=== PATIENT | male | born 1935 | race Caucasian/White ===

== ENCOUNTER 2017-03-23 20:38 | Emergency (ER) | payer MEDICARE, OTHER ==
[~2017-03-23] VITALS: Ht 170.2 cm; Wt 73.5 kg
[2017-03-23 20:55] VITALS: Ht 170.2 cm; Wt 73.5 kg
[2017-03-23] MEDS ORDERED: SOD CHLORIDE 0.9% 500 ML IV STA (21:44)
[2017-03-23] MEDS ORDERED: MECLIZINE 12.5 MG TAB PO ONE (22:00)
[2017-03-23 22:07] LABS: ADD SCAN DIFF NO
[2017-03-23 22:09] LABS: BASOPHILS % 0.3 % (0.0-2.0); EOSINOPHILS # 0.2 10^3/ul (0.0-0.5); EOSINOPHILS % 2.6 % (0.0-7.0); HEMATOCRIT 34.2 % (42.0-52.0); HEMOGLOBIN 11.6 g/dl (14.0-18.0); LYMPHOCYTES # 1.6 10^3/ul (0.8-2.9); LYMPHOCYTES % 25.7 % (15.0-51.0); MEAN CORPUSCULAR HEMOGLOBIN 30.3 pg (29.0-33.0); MEAN CORPUSCULAR HGB CONC 33.9 g/dl (32.0-37.0); MEAN CORPUSCULAR VOLUME 89.3 fl (82.0-101.0); MEAN PLATELET VOLUME 10.7 fl (7.4-10.4); MONOCYTE # 0.8 10^3/ul (0.3-0.9); MONOCYTES % 12.4 % (0.0-11.0); NEUTROPHIL # 3.6 10^3/ul (1.6-7.5); NEUTROPHILS % 58.8 % (39.0-77.0); PLATELET COUNT 129 10^3/UL (140-415); RED BLOOD COUNT 3.83 10^6/ul (4.70-6.10); RED CELL DISTRIBUTION WIDTH 12.7 % (11.5-14.5); WHITE BLOOD COUNT 6.1 10^3/ul (4.8-10.8)
[2017-03-23 22:25] LABS: INR 0.99; PROTIME 13.1 Sec (12.2-14.2)
[2017-03-23 22:26] LABS: PARTIAL THROMBOPLASTIN TIME 26.1 Sec (25.0-35.0)
--- NOTE | 2017-03-23 22:27 | RADRPT ---
PROCEDURE: CT Brain without contrast. CLINICAL INDICATION: dizzy TECHNIQUE: A CT of the brain was performed on a multidetector CT scanner utilizing axial imaging f rom the skull base through the vertex without IV contrast. Multiplanar reformatted images were made . Images were reviewed on a PACS workstation. The CTDIvol is 44 mGy and the DLP is 630 mGycm. COMPARISON: None FINDINGS: There is moderate age appropriate diffuse cerebral volume loss with sulcal and ventricular dilatatio n. No discrete extra-axial fluid collection or masses present. The ventricles are in the midline a nd of normal contour and configuration. There is preservation of normal pizarro-white discrimination. Small chronic lacunar infarct is seen in the right basal ganglia. No other intra-axial masses or r egions of abnormal attenuation are seen. There is no intracranial hemorrhage. There is normal aeration of the visualized paranasal sinuses. IMPRESSION: Age-appropriate atrophy. Small chronic lacunar infarct right basal ganglia. No intracranial hemorr huy, mass or bleed. .Tan Joe MD, Date Time Electronically viewed and signed by .Tan Joe MD, on 03/23/2017 22:26 .A/
[2017-03-23 22:29] LABS: ANION GAP 16 (8-16); BLOOD UREA NITROGEN 18 mg/dl (7-20); CALCIUM 9.5 mg/dl (8.4-10.2); CARBON DIOXIDE 24 mmol/L (21-31); CHLORIDE 104 mmol/L (97-110); GLUCOSE 133 mg/dl (70-220); POTASSIUM 4.2 mmol/L (3.5-5.1); SODIUM 140 mmol/L (135-144)
[2017-03-23] MEDS ORDERED: LORAZEPAM 2 MG INJ IV ONE (22:30)
[2017-03-23 22:51] LABS: TROPONIN-I < 0.012 ng/ml (0.00-0.12)
[2017-03-23] MEDS ORDERED: IOHEXOL 350MG/ML 50 ML BTL ONE (22:52)
[2017-03-23] MEDS ORDERED: IOHEXOL 100 ML ONE (22:52)
[2017-03-23] MEDS ORDERED: SOD CHLORIDE 0.9% 100 ML ONE (22:52)
--- NOTE | 2017-03-23 23:04 | RADRPT ---
PROCEDURE: XR Chest. CLINICAL INDICATION: Dizziness. Syncope TECHNIQUE: Portable AP semi erect view of the chest was obtained. COMPARISON: None. FINDINGS: The cardiomediastinal silhouette is within upper normal limits. The lungs are clear. Some calcifie d perihilar lymph nodes are noted. There is no evidence for pleural effusion, pneumothorax or pulmo nary vascular congestion. The osseous structures are intact with no evidence for acute abnormality. Calcification is present within the aorta RPTAT:HJJR IMPRESSION: 1. Chronic granulomatous disease without evidence for acute intrathoracic pathology. 2. Aortic atherosclerosis is present. Physician Dallas Date Time Electronically viewed and signed by Physician Dallas on 03/23/2017 23:04 JR/
[2017-03-23] MEDS ORDERED: SIMV40TA2 PO (23:31)
[2017-03-23] MEDS ORDERED: FER325 PO (23:31)
[2017-03-23] MEDS ORDERED: ENAL20TA PO (23:31)
[2017-03-23] MEDS ORDERED: MECL-77 PO (23:31)
[2017-03-23] MEDS ORDERED: ACET1TAB40 PO (23:31)
[2017-03-23] MEDS ORDERED: ASPI-664 PO (23:31)
[2017-03-23] MEDS ORDERED: LOSA1TAB19 PO (23:31)
[2017-03-23] MEDS ORDERED: ACAR50TA PO (23:31)
[2017-03-23] MEDS ORDERED: CLOP75TA27 PO (23:31)
[2017-03-23] MEDS ORDERED: CYAN500T46 PO (23:31)
[2017-03-23] MEDS ORDERED: ESCI10TA48 PO (23:31)
[2017-03-23] MEDS ORDERED: SITA100T8 PO (23:31)
[2017-03-23] MEDS ORDERED: TRAM-40 PO (23:31)
[2017-03-23] MEDS ORDERED: CLON-379 PO (23:31)
[2017-03-23] MEDS ORDERED: LORA1TAB PO (23:31)
[2017-03-23] MEDS ORDERED: ACET-141 PO (23:31)
[2017-03-23] MEDS ORDERED: CHOL100062 PO (23:31)
[2017-03-23] MEDS ORDERED: METO25TA7 PO (23:31)
--- NOTE | 2017-03-24 00:12 | RADRPT ---
PROCEDURE: CTA head and neck. CLINICAL INDICATION: Dizziness. TECHNIQUE: Direct spiral 0.63 mm axial sections were obtained through the cervical and intracrania l vasculature with the use of 100 cc of Isovue 370 nonionic intravenous contrast material. Coronal and sagittal as well as 3-D maximal intensity projection reformations were obtained. The images were reviewed on a PACS workstation. CTDIvol: 34.65, 17.70 mGy. DLP: 1713.24 mGy-cm. COMPARISON: Brain CT performed earlier on the same date. FINDINGS: CTA neck: The branching pattern of the aortic arch is normal. There is minimal calcified atheroscle rotic plaque at both carotid bulbs, without stenosis. Less than 50% narrowings of both proximal ICA is are noted due to soft atherosclerotic plaque. The bilateral vertebral arteries are widely patent. No dissection or aneurysm is identified. CTA head: There is mild calcified atherosclerotic plaque along the left petrous and bilateral cavern ous and supraclinoid ICAs, without stenosis. The bilateral ACAs, MCAs, and livery car driver are widely patent. The vertebrobasilar system is patent. 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 The visualized cerebe llar arteries are unremarkable. No vascular malformation is seen. IMPRESSION: 1. No significant stenosis or occlusion along the major cervical and intracranial arteries. 2. 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 3. No dissection or vascular malformation. Measurements of cervical internal carotid artery stenosis were performed according to NASCET criteri a, with reference to distal ICA diameter. RPTAT: HTAR .Christopher Dick MD, Date Time Electronically viewed and signed by .Christopher Dick MD, on 03/24/2017 00:11 .R/
--- NOTE | 2017-03-24 01:10 | ERD ---
ER Documentation Chief Complaint Date/Time DATE: 03/24/17 TIME: 01:09 Chief Complaint dizzy x 3 days HPI This is an 81-year-old male with complaints of dizziness for 3 days. Patient has history of vertigo in the past. Denies any fevers or chills. Denies any nausea vomiting. No focal neurological complaints. No focal weakness. No recent or remote head trauma. No other current complaints. ROS All systems reviewed and are negative except as per history of present illness. Medications Home Meds Reported Medications Clopidogrel Bisulfate (Clopidogrel) 75 Mg Tablet, 75 MG PO DAILY, #30 TAB 03/23/17 Acarbose* (Precose*) 50 Mg Tablet, 50 MG PO WITH BREAKFAST, TAB 03/23/17 Cholecalciferol* (Vitamin D3*) 1,000 Unit Tablet, 2000 UNIT PO DAILY, TAB 03/23/17 Cyanocobalamin* (Vitamin B12*) 500 Mcg Tab, 1000 MCG PO DAILY, TAB 03/23/17 Aspirin* (Aspirin* EC) 81 Mg Tablet.dr, 81 MG PO DAILY, TAB 03/23/17 Simvastatin* (Zocor*) 40 Mg Tablet, 40 MG PO QHS, #30 TAB 03/23/17 Acetaminophen with Codeine (Acetaminophen-Cod #3 Tablet) 1 Each Tablet, 1 TAB PO Q6H, #7 TAB 03/23/17 Tramadol Hcl* (Ultram*) 50 Mg Tablet, 50 MG PO Q6H Y for PAIN, TAB 03/23/17 Ferrous Sulfate* (Ferrous Sulfate*) 325 Mg Tabec, 325 MG PO DAILY, TAB 03/23/17 Sitagliptin* (Januvia*) 100 Mg Tablet, 100 MG PO DAILY, #30 TAB 03/23/17 Meclizine Hcl* (Meclizine Hcl*) 25 Mg Tablet, 25 MG PO Q8H Y for DIZZINESS, TAB 03/23/17 Acetaminophen* (Acetaminophen*) 500 MG Extra Strength Tablet, 500 MG PO Q4H Y for PAIN AND OR ELEVATED TEMP, TAB 03/23/17 Metoprolol Succinate* (Toprol XL*) 25 Mg Tab.sr.24h, 25 MG PO DAILY for ELEVATED BLOOD PRESSURE, #30 TAB 03/23/17 Escitalopram Oxalate* (Escitalopram Oxalate*) 10 Mg Tablet, 10 MG PO DAILY for ANXIETY, #30 TAB 03/23/17 Lorazepam* (Lorazepam*) 1 Mg Tablet, 1 MG PO Q6 Y for ANXIETY, #60 TAB 03/23/17 Losartan-Hydrochlorothiazide (Losartan-HCTZ) 50-12.5 Mg Tab, 1 TAB PO DAILY, TAB 03/23/17 Clonidine Hcl* (Clonidine Hcl*) 0.1 Mg Tab, 0.1 MG PO Q4H Y for ELEVATED BLOOD PRESSURE, TAB 03/23/17 Enalapril Maleate* (Enalapril Maleate*) 20 Mg Tablet, 20 MG PO DAILY Y for PRN, TAB 03/23/17 Allergies Allergies: Coded Allergies: No Known Allergy (Unverified , 03/23/17) PMhx/Soc Hx Alcohol Use: No Hx Substance Use: No Hx Tobacco Use: No Smoking Status: Never smoker Physical Exam Vitals Vital Signs Date Time Temp Pulse Resp B/P Pulse Ox O2 Delivery O2 Flow Rate FiO2 03/24/17 01:00 53 14 184/88 97 Room Air 03/24/17 00:00 65 22 159/129 96 Room Air 03/23/17 23:38 59 16 175/85 95 Room Air 03/23/17 20:55 98.3 67 18 179/91 97 Physical Exam Const: [] Head: Atraumatic Eyes: Normal Conjunctiva ENT: Normal External Ears, Nose and Mouth. Neck: Full range of motion..~ No meningismus. Resp: Clear to auscultation bilaterally Cardio: Regular rate and rhythm, no murmurs Abd: Soft, non tender, non distended. Normal bowel sounds Skin: No petechiae or rashes Back: No midline or flank tenderness Ext: No cyanosis, or edema Neur: Awake and alert Psych: Normal Mood and Affect Result Diagram: 03/23/17215803/23/172158 Results 24 hrs Laboratory Tests Test 03/23/17 21:59 03/23/17 22:31 White Blood Count 6.110^3/ul Red Blood Count 3.8310^6/ul Hemoglobin 11.6g/dl Hematocrit 34.2% Mean Corpuscular Volume 89.3fl Mean Corpuscular Hemoglobin 30.3pg Mean Corpuscular Hemoglobin Concent 33.9g/dl Red Cell Distribution Width 12.7% Platelet Count 79430^3/UL Mean Platelet Volume 10.7fl Neutrophils % 58.8% Lymphocytes % 25.7% Monocytes % 12.4% Eosinophils % 2.6% Basophils % 0.3% Nucleated Red Blood Cells % 0.0/100WBC Neutrophils # 3.610^3/ul Lymphocytes # 1.610^3/ul Monocytes # 0.810^3/ul Eosinophils # 0.210^3/ul Basophils # 0.010^3/ul Nucleated Red Blood Cells # 0.010^3/ul Prothrombin Time 13.1Sec Prothrombin Time Ratio 1.0 INR International Normalized Ratio 0.99 Activated Partial Thromboplast Time 26.1Sec Sodium Level 140mmol/L Potassium Level 4.2mmol/L Chloride Level 104mmol/L Carbon Dioxide Level 24mmol/L Anion Gap 16 Blood Urea Nitrogen 18mg/dl Creatinine 0.90mg/dl Glucose Level 133mg/dl Calcium Level 9.5mg/dl Troponin I < 0.012ng/ml Bedside Glucose 167mg/dL Current Medications Medications (Trade) Dose Ordered Sig/Janak Route PRN Reason Start Time Stop Time Status Last Admin Dose Admin Sodium Chloride (NS) 500 ml @ 500 mls/hr Q1H STAT IV 03/23/17 21:44 03/23/17 22:43 DC 03/23/17 22:24 Meclizine HCl (Antivert) 25 mg ONCE ONCE PO 03/23/17 22:00 03/23/17 22:01 DC 03/23/17 22:24 Lorazepam (Ativan) 1 mg ONCE ONCE IV 03/23/17 22:30 03/23/17 22:31 DC 03/23/17 22:24 IV Flush 10 ml 10 ml STK-MED ONCE .ROUTE 03/23/17 22:51 03/23/17 22:52 DC 03/23/17 23:12 Sodium Chloride 100 ml @ ud STK-MED ONCE .ROUTE 03/23/17 22:52 03/23/17 22:53 DC 03/23/17 23:13 Iohexol (Omnipaque) 100 ml @ ud STK-MED ONCE .ROUTE 03/23/17 22:52 03/23/17 22:53 DC 03/23/17 23:13 Iohexol (Omnipaque 350mg/ ml) 50 ml STK-MED ONCE .ROUTE 03/23/17 22:52 03/23/17 22:53 DC 03/23/17 23:13 Procedures/MDM EKG: Rate/Rhythm: Normal Sinus Rhythm QRS, ST, T-waves: No changes consistent w/ acute ischemia Impression: No evidence of ischemia or arrhythmia Chest X-ray 1V Interpreted by me: Soft Tissue: No acute abnormalities Bones: No acute abnormalities Mediastinum/Cardiac Silhouette/Lungs: No acute abnormalities CT of the head is read as negative CT neck angios negative CT brain injury oh shows small basilar tip aneurysm please see radiologist full dictation for report Medical decision-makin abdominal chronic vertigo. At this point clinically stable. Discharged on meclizine. As follow with primary care physician. Discuss case with Dr. Barkley, who recommended patient following up with them in outpatient setting as this is an incidental finding. Departure Diagnosis: Primary Impression: Dizziness Condition: Stable Patient Instructions: Dizziness, Unk Cause [place] RODRIGUEZ Mar 24, 2017 01:10
[2017-03-24] MEDS ORDERED: hydrALAzine 20 MG INJ IV ONE (02:00)
[2017-03-24 02:30] VITALS: BP 165/78; PULSE 58; RESP 13
== END 2017-03-24 02:30 | disposition home or self-care (01) ==
LOC: E/R 20:38
DX: R42 Dizziness and giddiness (principal); R55 Syncope and collapse; Z79.82 Long term (current) use of aspirin
CPT/HCPCS: 36415; 70450; 70496; 70498; 71010; 80048; 82962; 84484; 85025; 85610; 85730; 93005; 96374; 96375; 99285; J0360; J2060; J7040; Q9967